=== PATIENT | female | born 1940 | race Caucasian/White ===

== ENCOUNTER 2025-04-15 18:06 | Inpatient (IN) | payer OTHER, SELFPAY ==
[2025-04-15 12:41] VITALS: BP 149/87
--- NOTE | 2025-04-15 16:04 | ED.GENMED ---
History of Present Illness
General
Chief Complaint: Musculo-Skeletal Complaint
Source: patient
Exam Limitations: none
Time Seen by Provider: 04/15/25 15:10
Nursing documentation reviewed up to this point in time: agreed with
History of Present Illness
History of Present Illness:
85-year-old female past medical history of Parkinson's presenting to the emergency department today after mechanical fall coming out of shower twisting her left ankle denies specifically hitting her head neck pain no additional concerns small Tesfaye
bruising to her left hand but claims to have no symptoms or pain to that area. Unable to walk since. Denies numbness weakness or additional concerns. Not on blood thinners.
Review of Systems
Review of Systems
Allergies reviewed?: Yes
All Other Systems: ROS reviewed and negative except as documented in HPI and ROS
Phy Exam
Physical Exam
Physical Exam:
GENERAL: Alert , in no apparent distress
EYE: pupils equal and reactive
NECK: Supple, no significant adenopathy.
ENT: o/p clr, mmm.
CARDIAC: Regular rate and rhythm .
LUNGS: Clear breath sounds bilaterally, no acute respiratory distress, no wheezes/rales/rhonchi
ABDOMEN: Soft, without focal tenderness, no r/g, no cvat
NEUROLOGICAL: Alert and oriented, no focal neuro deficits
SKIN: Warm and dry, skin intact.
MUSCULOSKELETAL: Left ankle swelling tenderness palpation to lateral and medial malleolus unwilling to move the ankle secondary to pain. No tenderness to the foot forefoot or toes. No pain at the briceño no pain at the knee good range of motion at
the knee, well perfused.
PSYCH: Normal and appropriate interaction.
Course
Orders/Labs/Results
Orders:
Orders
04/15/25 12:46
CR Ankle - Left Min 3 Views Urgent
Comment:
Reason For Exam: pain
Tib/Fib, Left 2 View [CR Leg Tibia/fibula Left 2 Vw] Urgent
Comment:
Reason For Exam: pain
04/15/25 15:54
Lower Ext Left wo Contrast CT [CT Lower Ext W/o Iv Cont Lt] Urgent
Comment:
Reason For Exam: knee eval for tibial plateau fx
04/15/25 16:36
BMP [Basic Metabolic Panel] Urgent
CBC/With Diff [Complete Blood Count/With Diff] Urgent
Abnormal Lab Results
04/15/25
16:36
WBC 13.5 H 10^3/uL
(4.8-10.8)
RBC 3.93 L 10^6/uL
(4.20-5.40)
Hgb 11.9 L g/dL
(12.0-16.0)
Hct 35.5 L %
(37.0-47.0)
Abs Immat Gran (auto) 0.1 H 10^3/uL
(0-0.05)
Absolute Neuts (auto) 11.1 H 10^3/uL
(1.4-6.5)
Absolute Lymphs (auto) 1.1 L 10^3/uL
(1.2-3.4)
Absolute Monos (auto) 1.1 H 10^3/uL
(0.1-0.6)
Neutrophils % 82.2 H %
(42.2-75.2)
Lymphocytes % 8.0 L %
(20.5-51.1)
BUN 20 H mg/dl
(7-17)
Glucose 106 H mg/dl
(70-99)
04/15/25 16:36
04/15/25 16:36
Vital Signs
Initial and Last Documented VS:
Initial Vital Signs
Temp Pulse Resp BP Pulse Ox
98 F 70 16 149/87 100
04/15/25 12:41 04/15/25 12:41 04/15/25 12:41 04/15/25 12:41 04/15/25 12:41
Last Documented Vital Signs
Temp Pulse Resp BP Pulse Ox
98 F 70 16 149/87 100
04/15/25 12:41 04/15/25 12:41 04/15/25 12:41 04/15/25 12:41 04/15/25 12:41
Procedures
Splinting/Sling Placement
Left Ankle:
Procedure completed by: Myself
Pre-splint extermity exam: neurovascular intact
Type of splint: posterior short leg
Splint material: fiberglass
Splint checked by provider?: Yes
Normal distal neurovascular exam?: Yes
MDM/Problems Addressed
MDM/Problems Addressed:
85-year-old female presenting to the emergency department today after mechanical fall injuring her left ankle. Patient found to have a bimalleolar fracture. Patient unable to tolerate crutches plan to admit for potential placement and Ortho
consult. Additionally concern for potential tibial plateau fracture. CT scan ordered for further assessment.
*Critical Care Note
Total Time (30-74mins, 75-104mins- exclusive of procedures): Not Applicable
ED Attending Note
-
Portions of this chart may have been created with voice recognition software.� Occasional wrong word or��sound alike� substitutions may have occurred due to the inherent limitations of voice recognition software.
Discharge Plan
Departure
Patient Disposition: Admit
Date of Disposition: 04/15/25
Time of Disposition: 17:29
Admit to: Med/Surg
Admit to doctor: Jerson
Presentation/result/management discussed w/ accepting MD/DO: Hospitalist
Patient with high blood pressure during this ER visit?: No
Condition: Good
Covid-19: Not Applicable
Discharge Problem:
Bimalleolar ankle fracture
Referrals:
Daisha Cabrera MD [Family Provider] -
Interventions
Interventions:
*Risk Screen - Suicide Last Done: 04/15/25 12:41
*General Assessment Last Done: 04/15/25 15:08
*Neglect/Abuse Screening Last Done: 04/15/25 12:41
*ED- Fall Risk Assessment Last Done: 04/15/25 15:08
*ED COVID-19 Vaccine History Last Done: 04/15/25 15:08
ED-Musculoskeletal Assessment Last Done: 04/15/25 15:08
Discharge Date and Time
Print Language: TAIWANESE
[2025-04-15 16:37] VITALS: BMI 19.4
[2025-04-15 16:41] LABS: % Basophils 0.1 % (0-2); % Eosinophils 0.9 % (0-6); % Immature Granulocytes 0.4 % (0-0.5); % Monocytes 8.4 % (1.7-9.3); % Neutrophils 82.2 % (42.2-75.2); Absolute Eosinophils 0.1 10^3/uL (0-0.7); Absolute Immature Granulocytes 0.1 10^3/uL (0-0.05); Absolute Lymphocytes 1.1 10^3/uL (1.2-3.4); Absolute Monocytes 1.1 10^3/uL (0.1-0.6); Absolute Neutrophils 11.1 10^3/uL (1.4-6.5); Hematocrit 35.5 % (37.0-47.0); Hemoglobin 11.9 g/dL (12.0-16.0); Mean Corp Hgb Conc. 33.5 g/dL (33.0-37.0); Mean Corpuscular Hgb 30.3 pg (27.0-31.0); Mean Corpuscular Volume 90.3 fL (81.0-99.0); Mean Platelet Volume 8.2 fL (7.4-10.4); Nucleated Red Blood Cells % 0 %; Platelet Count 293 10^3/uL (130-400); Red Blood Cell Count 3.93 10^6/uL (4.20-5.40); Red Cell Dist. Width 13.4 % (11.5-14.5); White Blood Cell Count 13.5 10^3/uL (4.8-10.8)
[2025-04-15 17:00] LABS: Blood Urea Nitrogen 20 mg/dl (7-17); Calcium 9.6 mg/dl (8.4-10.2); Carbon Dioxide 26 mmol/L (22-30); Chloride 107 mmol/L (98-107); Estimated Creatinine Clearance 43 ml/min; Glucose 106 mg/dl (70-99); Potassium 4.9 mmol/L (3.5-5.1); Sodium 138 mmol/L (135-145); eGFR > 60.00
--- NOTE | 2025-04-15 17:46 | HPS.HSE ---
Family Physician
-
Family Physician: Daisha Cabrera
Chief Complaint
-
LLE pain
History of Present Illness
85yo f with PMHx of HTN, Parkinsons brought from home after sustaining the fall while walking out of the shower. No LOC, no preceding symptoms. Patient with poor balance at baseline 2/2 Parkinsons, found Acute fractures of the medial malleolus and
the lateral malleolus, both with mild displacement and lateral tibial plateau fracture. Patient unable to ambulate after the fall
Medical History
Past Medical History
Past Medical History: Reports Other
Additional Past Medical History:
see HPI
Past Surgical History: Reports Other
Additional Past Surgical History:
See HPI
Social History
Tobacco: Former Smoker
Alcohol: None
Drug: None
Family History
Family History: Not pertinent
Allergies / Home Medications
Allergies reflects when Allergies were last updated in [facility].
Home Medications with original date entered in [facility]
Allergy/Medication List:
Allergies
Allergy/AdvReac Type Severity Reaction Status Date / Time
COVID-19 (SARS-CoV-2) Allergy Unknown Verified 04/15/25 12:45
vaccine, alex
Full list not reconciled at the time of admission
Sinemet 1.5tabs TID
Review of Systems
-
History Source: Patient
A 12 point ROS was completed and negative except as noted: Yes
Musculoskeletal: Reports Other (LLE pain)
Physical Exam
Vital Signs
Vital Signs
Temp Pulse Resp BP Pulse Ox
98 F 70 16 149/87 100
04/15/25 12:41 04/15/25 12:41 04/15/25 12:41 04/15/25 12:41 04/15/25 12:41
Physical Exam
General: No Apparent Distress, Comfortable and Conversant
HEENT: NormoCephalic, Anicteric and Moist mucous membranes
Respiratory: Clear; No Wheezes or Crackles
Cardiac: S1/S2 and Regular Rhythm; No Murmur
GI: Soft, Non Tender and Non Distended
Musculoskeletal: No Clubbing, No Cyanosis and Other (LLE in cast)
Skin: Warm
Neuro: Awake, Alert, Oriented and AO x 3
Psych: Calm
Laboratory Results
-
04/15/25 16:36
04/15/25 16:36
Data Reviewed
-
Diagnostic Radiology: Report Reviewed by me
Lab Data: Labs Reviewed by me
Impression/Plan
-
A/P:
#Acute fractures of the L medial malleolus and the lateral malleolus, both with mild displacement
#L lateral tibial plateau fracture
Possibly exacerbated by osteoporosis - needs outpatient assessment by PCP
Patient without prior cardiac stent, no pneumonia in past 3 months, does not use inhalers, low-moderate risk for intermediate risk procedure.
Ortho consult
Pain mgmt
PT/OT
NPO starting MN
#L hand bruise
Hand XR
#Mild leukocytosis
most liekyl stress-related as patient complains of no symptoms
Monitor without additional w/u
#Anxiety
#Neuropathy
#Essential HTN
#parkinsons
COnt home meds
DVt ppx on lovenox
DNR/DNI - discussed in details with patient and family
I have spent at least 75min reviewing chart, test results, communication with consultants, family and providing direct patient care
--- NOTE | 2025-04-15 19:15 | PTCARENOTE ---
Patient arrived to [address] [place] [address], transferred from stretch to bed. Splint and jovanny wrap intact to L lower leg. Patient's son and DIL at bedside. Pt AAOx3, pleasant, no pain at this time. VSS, assessment on going.
[2025-04-15 19:19] VITALS: BMI 19.2
[2025-04-15 19:25] VITALS: BP 153/86
[2025-04-15] MEDS: D5LR 1000 IV (21:19)
[2025-04-15] MEDS: SINEMET 25-100 1.5 TABLET PO (21:19)
[2025-04-15] MEDS: LOVENOX 40 MG SC (21:19)
[2025-04-15 23:40] VITALS: BP 140/76
[2025-04-16] MEDS: ULTRAM 25 MG PO (00:15)
[2025-04-16] MEDS: TYLENOL 650 MG PO ×2 (02:10→18:25)
[2025-04-16 07:20] VITALS: BP 157/83
--- NOTE | 2025-04-16 07:48 | W.PN.UPDATE ---
Update Note
Progress Note Update
Full orthopedic consult dictated:
Dx: Left lateral tibial plateau fracture with minimal depression, left bimalleolar fracture and left hand contusion
Plan: Patient unfortunately had a fall sustaining multiple injuries. For her left hand contusion treat conservatively with ice, Tylenol and range of motion exercises. The left lateral tibial plateau fracture has minimal depression so treat
nonsurgically with nonweightbearing until fracture heals. Serial x-rays to follow fracture position and healing. Left ankle fracture is going to require open reduction internal fixation. Dr. Currie will do open reduction internal fixation left
ankle this week. Nonweightbearing along with ice and elevation to control swelling and pain.
[2025-04-16 07:50] LABS: INR 1.06; PT 14.1 Sec (11.4-14.6)
[2025-04-16 07:51] LABS: APTT 40.2 Sec (23.4-35.0)
[2025-04-16 08:02] LABS: % Basophils 0.4 % (0-2); % Eosinophils 0.5 % (0-6); % Immature Granulocytes 0.3 % (0-0.5); % Lymphocytes 13.3 % (20.5-51.1); % Neutrophils 73.5 % (42.2-75.2); Absolute Eosinophils 0.1 10^3/uL (0-0.7); Absolute Lymphocytes 1.3 10^3/uL (1.2-3.4); Absolute Monocytes 1.2 10^3/uL (0.1-0.6); Absolute Neutrophils 7.1 10^3/uL (1.4-6.5); Hematocrit 31.1 % (37.0-47.0); Hemoglobin 10.7 g/dL (12.0-16.0); Mean Corp Hgb Conc. 34.4 g/dL (33.0-37.0); Mean Corpuscular Hgb 29.8 pg (27.0-31.0); Mean Corpuscular Volume 86.6 fL (81.0-99.0); Mean Platelet Volume 8.6 fL (7.4-10.4); Nucleated Red Blood Cells % 0 %; Platelet Count 277 10^3/uL (130-400); Red Blood Cell Count 3.59 10^6/uL (4.20-5.40); Red Cell Dist. Width 13.3 % (11.5-14.5); White Blood Cell Count 9.7 10^3/uL (4.8-10.8)
[2025-04-16] MEDS: BUSPAR 10 MG PO ×3 (08:55→21:31)
[2025-04-16] MEDS: INDERAL 20 MG PO (08:55)
[2025-04-16] MEDS: SINEMET 25-100 1.5 TABLET PO ×3 (08:56→21:31)
--- NOTE | 2025-04-16 09:08 | W.PN.HOSP.TC ---
Today's Communication/Plan
-
PT/OT post OP
pending plan for L ankle ORIF
labs ordered for AM
Assessment / Plan
Assessment / Plan
85yo f with PMHx of HTN, Parkinsons brought from home after sustaining the fall while walking out of the shower. No LOC, no preceding symptoms. Patient with poor balance at baseline 2/2 Parkinsons, found Acute fractures of the medial malleolus and
the lateral malleolus, both with mild displacement and lateral tibial plateau fracture. Patient unable to ambulate after the fall, pending ortho for L ankle ORIF
A/P:
#Acute fractures of the L medial malleolus and the lateral malleolus, both with mild displacement
#L lateral tibial plateau fracture
L tibial plateau - conservative mgmt
Ankle Fx - ORIF planned by ortho
Possibly exacerbated by osteoporosis - needs outpatient assessment by PCP
Patient without prior cardiac stent, no pneumonia in past 3 months, does not use inhalers, low-moderate risk for intermediate risk procedure.
Ortho consult
Pain mgmt
PT/OT after surgery
#L hand bruise
Hand XR without Fx
#Mild leukocytosis
most liekyl stress-related as patient complains of no symptoms
resolved
#mild anemia
follow postOP CBC
outpatient follow up with PCP
#Anxiety
#Neuropathy
#Essential HTN
#parkinsons
COnt home meds
DVt ppx on lovenox
DNR/DNI - discussed in details with patient and family
I have spent at least 55min reviewing chart, test results, communication with consultants, family and providing direct patient care
Anticipated Discharge: > 48 hours
Subjective/Interval History
-
Date of Service: April 16, 2025
Objective Data
-
Labs:
Laboratory Results
04/16/25 04/16/25
06:37 07:29
WBC 9.7
Hgb 10.7 L
Hct 31.1 L
Plt Count 277
PT 14.1
INR 1.06
APTT 40.2 H
Vital Signs:
Vital Signs
Temp Pulse Resp BP Pulse Ox
98.0 F 93 16 157/83 97
04/16/25 07:20 04/16/25 08:55 04/16/25 07:20 04/16/25 08:55 04/16/25 07:20
Review of Systems
-
History Source: Patient
All other systems: Reviewed and negative
Musculoskeletal: Reports Other (LLE pain)
Physical Exam
-
General: No Apparent Distress
HEENT: Normocephalic
Cardiac: Regular Rhythm
GI: Soft, Nontender and Nondistended
Musculoskeletal: Other (LLE in cast, sensation preserved in toes,no discoloration)
Skin: Other (L hand bruise, improving)
Neuro: Awake, Alert, Oriented and AO x 3
[2025-04-16] MEDS: NEURONTIN 600 MG PO (11:36)
[2025-04-16] MEDS: D5LR IV (12:06)
[2025-04-16 15:59] VITALS: BP 148/78
[2025-04-16] MEDS: LOVENOX 40 MG SC (16:32)
[2025-04-16] MEDS: INDERAL 10 MG PO (18:25)
[2025-04-16] MEDS: REMERON 15 MG PO (21:31)
[2025-04-16 23:12] VITALS: BP 110/57
[2025-04-17] MEDS: TYLENOL 650 MG PO (01:55)
[2025-04-17 07:35] VITALS: BP 139/72
--- NOTE | 2025-04-17 07:37 | W.PN.UPDATE ---
Update Note
Progress Note Update
Will discuss with patient potential operative plans for unstable ankle fracture
Consider ORIF pending discussion
--- NOTE | 2025-04-17 08:04 | W.PN.UPDATE ---
Update Note
Progress Note Update
85-year-old female left tibial plateau fracture and left bimalleolar ankle fracture
- Podiatric surgery consultation for left ankle. Continue nonweightbearing in splint. Possible ORIF later this week but not today
- Nonweightbearing to left lower extremity regarding left tibial plateau fracture. Can use knee immobilizer for time being and repeat x-rays in 1 to 2 weeks and consideration of beginning knee range of motion as pain is tolerated continue
nonweightbearing for duration of at least 6 weeks
[2025-04-17 08:09] LABS: Hematocrit 29.3 % (37.0-47.0); Hemoglobin 9.8 g/dL (12.0-16.0); Mean Corp Hgb Conc. 33.4 g/dL (33.0-37.0); Mean Corpuscular Hgb 30.1 pg (27.0-31.0); Mean Corpuscular Volume 89.9 fL (81.0-99.0); Mean Platelet Volume 8.4 fL (7.4-10.4); Platelet Count 251 10^3/uL (130-400); Red Blood Cell Count 3.26 10^6/uL (4.20-5.40); Red Cell Dist. Width 13.2 % (11.5-14.5); White Blood Cell Count 9.1 10^3/uL (4.8-10.8)
[2025-04-17 08:19] LABS: INR 1.04; PT 14.2 Sec (11.4-14.6)
[2025-04-17 09:03] LABS: Blood Urea Nitrogen 19 mg/dl (7-17); Calcium 9.3 mg/dl (8.4-10.2); Carbon Dioxide 27 mmol/L (22-30); Chloride 102 mmol/L (98-107); Estimated Creatinine Clearance 43 ml/min; Glucose 105 mg/dl (70-99); Potassium 4.1 mmol/L (3.5-5.1); Sodium 135 mmol/L (135-145); eGFR > 60.00
[2025-04-17] MEDS: SINEMET 25-100 1.5 TABLET PO ×3 (09:13→21:31)
[2025-04-17] MEDS: BUSPAR 10 MG PO ×3 (09:13→21:31)
[2025-04-17] MEDS: INDERAL 20 MG PO (09:13)
--- NOTE | 2025-04-17 13:10 | W.PN.HOSP.TC ---
Today's Communication/Plan
-
Continue as needed analgesics
PT assessment
Planning ORIF this week
Conservative management for tibial fracture
Assessment / Plan
Assessment / Plan
#Acute mildly displaced fractures of the L medial lateral malleolus
#L lateral tibial plateau fracture
-L tibial plateau - conservative mgmt
-Ankle Fx - ORIF planned by ortho
-Possibly exacerbated by osteoporosis - needs outpatient assessment by PCP
-low-moderate risk for intermediate risk procedure.
-Ortho consult
-Pain mgmt
-PT/OT after surgery
#L hand bruise
-Hand XR without Fx
#Mild leukocytosis
-most likely stress-related as patient complains of no symptoms
-resolved
# Normocytic anemia
-Hemoglobin near 11.6 on arrival, down to 9.8 as of 04/17
-Possibly some bleeding local to her fractures though no other obvious sources
-Will check iron studies, B12, folate, RI
-Trend CBC
#Anxiety
#Neuropathy
#Essential HTN
#parkinsons
-Continue with home regimen home meds
SQ Lovenox
Cholesterol-lowering
DNR/DNI
Anticipated Discharge: > 48 hours
Subjective/Interval History
-
Date of Service: April 17, 2025
Seen and examined at the bedside. No acute events reported overnight. AFVSS this morning
Discussed with orthopedics who is considering ORIF later this week. PT evaluated patient this morning.
Labs are stable. Patient states her pain is fairly well-controlled at the time of my eval
Objective Data
-
Labs:
Laboratory Results
04/17/25
07:59
WBC 9.1
Hgb 9.8 L
Hct 29.3 L
Plt Count 251
PT 14.2
INR 1.04
Sodium 135
Potassium 4.1
Chloride 102
Carbon Dioxide 27
BUN 19 H
Creatinine 0.7
Glucose 105 H
Calcium 9.3
Vital Signs:
Vital Signs
Temp Pulse Resp BP Pulse Ox
98.2 F 77 16 139/72 96
04/17/25 07:35 04/17/25 09:13 04/17/25 07:35 04/17/25 09:13 04/17/25 07:35
I&O
04/16/25 04/17/25 04/18/25
06:59 06:59 06:59
Intake Total 600 / 600 120 / 120
Balance 600 / 600 120 / 120
Review of Systems
-
History Source: Patient
All other systems: Reviewed and negative
Physical Exam
-
General: Well Developed, No Apparent Distress and Other (Thin and frail)
HEENT: Normocephalic, Atraumatic, Moist Mucous Membranes and Anicteric
Respiratory: Clear to Auscultation and Non Labored Respirations; Negative Accessory Resp Muscle Use
Cardiac: Regular Rhythm and S1/S2; Negative Murmur, Rub or Gallop
GI: Soft, Nontender, Nondistended and Normal Bowel Sounds
Musculoskeletal: No Clubbing, No Cyanosis and No Edema
Skin: Warm and Dry; Negative Rash
Neuro: AO x 3 and Nonfocal/Grossly Intact; Negative Tremors
Psych: Calm
Data Reviewed
-
Labs: Labs Reviewed by me and Discussed with Patient
[2025-04-17] MEDS: NEURONTIN 600 MG PO (14:09)
[2025-04-17 15:26] VITALS: BP 122/62
--- NOTE | 2025-04-17 16:16 | W.PN.SURGUPD ---
Surgical Update
Surgical Update
85 yo F presents with L unstable bimalleolar fracture
-Patient seen and evaluated at bedside
-Plan for left ankle ORIF 04/18
-Please keep patient NPO after midnight
-May need SNF upon discharge
[2025-04-17] MEDS: LOVENOX SC (17:33)
[2025-04-17] MEDS: INDERAL 10 MG PO (21:31)
[2025-04-17] MEDS: REMERON 15 MG PO (21:31)
[2025-04-17 23:00] VITALS: BP 103/51
[2025-04-18] VITALS (9 sets, daily range): BP systolic 123–160; BP diastolic 58–85
[2025-04-18 06:52] LABS: % Basophils 0.1 % (0-2); % Eosinophils 2.9 % (0-6); % Immature Granulocytes 0.4 % (0-0.5); % Lymphocytes 20.4 % (20.5-51.1); % Monocytes 13.4 % (1.7-9.3); % Neutrophils 62.8 % (42.2-75.2); Absolute Eosinophils 0.2 10^3/uL (0-0.7); Absolute Lymphocytes 1.7 10^3/uL (1.2-3.4); Absolute Monocytes 1.1 10^3/uL (0.1-0.6); Absolute Neutrophils 5.3 10^3/uL (1.4-6.5); Hematocrit 29.2 % (37.0-47.0); Hemoglobin 9.7 g/dL (12.0-16.0); Mean Corp Hgb Conc. 33.2 g/dL (33.0-37.0); Mean Corpuscular Hgb 29.8 pg (27.0-31.0); Mean Corpuscular Volume 89.8 fL (81.0-99.0); Mean Platelet Volume 8.3 fL (7.4-10.4); Nucleated Red Blood Cells % 0 %; Platelet Count 252 10^3/uL (130-400); Red Blood Cell Count 3.25 10^6/uL (4.20-5.40); Red Cell Dist. Width 13.2 % (11.5-14.5); Reticulocyte Count 1.4 % (0.4-2.8); White Blood Cell Count 8.4 10^3/uL (4.8-10.8)
[2025-04-18 07:20] LABS: Blood Urea Nitrogen 18 mg/dl (7-17); Calcium 9.2 mg/dl (8.4-10.2); Carbon Dioxide 28 mmol/L (22-30); Chloride 104 mmol/L (98-107); Estimated Creatinine Clearance 43 ml/min; Glucose 95 mg/dl (70-99); Iron 53 ug/dl (37-170); Potassium 3.8 mmol/L (3.5-5.1); Sodium 138 mmol/L (135-145); eGFR > 60.00
[2025-04-18 07:31] LABS: Percent Saturation 22 % (20-50); Total Iron Binding Capacity 235 ug/dl (265-497)
[2025-04-18 08:27] LABS: Folate 5.1 ng/ml (2.76-20); Vitamin B12 271 pg/ml (239-931)
[2025-04-18] MEDS: SINEMET 25-100 1.5 TABLET PO ×2 (10:02→23:34)
[2025-04-18] MEDS: INDERAL 20 MG PO (10:03)
[2025-04-18] MEDS: BUSPAR 10 MG PO ×2 (10:03→23:34)
[2025-04-18] MEDS: ULTRAM 25 MG PO (10:10)
--- NOTE | 2025-04-18 10:24 | CM ---
Patient seen at bedside
OR scheduled today
Dx: L tibial & malleolar fx
PMH of HTN, Parkinsons
IA completed
Lives alone in an apartment [facility] in [place], no steps
PLOF: independent with cane
DME: cane, rollator
Denies VN in past, states [facility] in past
Denies insecurities
PCP: Dr. Jennifer Cabrera
Pharmacy: [facility]
PLAN: anticipate SNF, await PT/OT post-op
[2025-04-18] MEDS: NEURONTIN 600 MG PO (13:27)
--- NOTE | 2025-04-18 15:03 | W.PN.HOSP.TC ---
Today's Communication/Plan
-
ORIF today
Assessment / Plan
Assessment / Plan
#Acute mildly displaced fractures of the L medial lateral malleolus
#L lateral tibial plateau fracture
-L tibial plateau - conservative mgmt
-Ankle Fx - ORIF planned by ortho
-Possibly exacerbated by osteoporosis - needs outpatient assessment by PCP
-low-moderate risk for intermediate risk procedure.
-Ortho consult
-Pain mgmt
-PT/OT after surgery
#L hand bruise
-Hand XR without Fx
#Mild leukocytosis
-most likely stress-related as patient complains of no symptoms
-resolved
# Normocytic anemia
-Hemoglobin near 11.6 on arrival, down to 9.8 as of 04/17
-Possibly some bleeding local to her fractures though no other obvious sources
-Will check iron studies, B12, folate, RI
-Trend CBC
#Anxiety
#Neuropathy
#Essential HTN
#parkinsons
-Continue with home regimen home meds
SQ Lovenox
Cholesterol-lowering
DNR/DNI
Anticipated Discharge: 24 - 48 hours
Subjective/Interval History
-
Date of Service: April 18, 2025
no acute events
Objective Data
-
Labs:
Laboratory Results
04/18/25
06:36
WBC 8.4
Hgb 9.7 L
Hct 29.2 L
Plt Count 252
Sodium 138
Potassium 3.8
Chloride 104
Carbon Dioxide 28
BUN 18 H
Creatinine 0.7
Glucose 95
Calcium 9.2
Vital Signs:
Vital Signs
Temp Pulse Resp BP Pulse Ox
98.4 F 73 17 126/64 96
04/18/25 07:14 04/18/25 07:14 04/18/25 07:14 04/18/25 07:14 04/18/25 07:14
I&O
04/17/25 04/18/25 04/19/25
06:59 06:59 06:59
Intake Total 600 / 600 840 / 840
Balance 600 / 600 840 / 840
Review of Systems
-
History Source: Patient
All other systems: Not reviewed unless documented
Physical Exam
-
General: Well Developed, No Apparent Distress and Other (Thin and frail)
HEENT: Normocephalic, Atraumatic, Moist Mucous Membranes and Anicteric
Respiratory: Clear to Auscultation and Non Labored Respirations; Negative Accessory Resp Muscle Use
Cardiac: Regular Rhythm and S1/S2; Negative Murmur, Rub or Gallop
GI: Soft, Nontender, Nondistended and Normal Bowel Sounds
Musculoskeletal: No Clubbing, No Cyanosis and No Edema
Skin: Warm and Dry; Negative Rash
Neuro: AO x 3 and Nonfocal/Grossly Intact; Negative Tremors
Psych: Calm
Data Reviewed
-
Labs: Labs Reviewed by me and Discussed with Patient
[2025-04-18] MEDS: SINEMET 25-100 PO (18:30)
[2025-04-18] MEDS: BUSPAR PO (18:30)
[2025-04-18] MEDS: LOVENOX SC (18:31)
--- NOTE | 2025-04-18 20:36 | W.PN.SURGUPD ---
Surgical Update
Surgical Update
85 yo F s/p left ankle ORIF
-Dressings to remain C/D/I
-Strict NWB to LLE
-Will need PT/OT
-Anticipate need for DC to SNF
--- NOTE | 2025-04-18 22:23 | PTCARENOTE ---
Pt arrived 0 from PACU. Pt confused, drowsy and only oriented to self. VSS. oriented to room and call mcmahan. bed locked and in the lowest position
[2025-04-18] MEDS: INDERAL 10 MG PO (23:34)
[2025-04-18] MEDS: REMERON 15 MG PO (23:35)
[2025-04-19] VITALS (8 sets, daily range): BP systolic 122–160; BP diastolic 58–96; PULSE 91–92; O2SAT 98
[2025-04-19] MEDS: ANCEF 5 IV (02:40)
[2025-04-19 07:36] LABS: Hematocrit 30.8 % (37.0-47.0); Hemoglobin 10.2 g/dL (12.0-16.0); Mean Corp Hgb Conc. 33.1 g/dL (33.0-37.0); Mean Corpuscular Hgb 29.9 pg (27.0-31.0); Mean Corpuscular Volume 90.3 fL (81.0-99.0); Mean Platelet Volume 8.9 fL (7.4-10.4); Platelet Count 327 10^3/uL (130-400); Red Blood Cell Count 3.41 10^6/uL (4.20-5.40); Red Cell Dist. Width 13.1 % (11.5-14.5); White Blood Cell Count 11.9 10^3/uL (4.8-10.8)
[2025-04-19 07:48] LABS: ALT (SGPT) < 10 U/L (0-35); AST (SGOT) 34 U/L (14-36); Albumin 3.9 g/dl (3.5-5.0); Alkaline Phosphatase 109 U/L (38-126); Blood Urea Nitrogen 23 mg/dl (7-17); Calcium 9.1 mg/dl (8.4-10.2); Carbon Dioxide 25 mmol/L (22-30); Chloride 104 mmol/L (98-107); Estimated Creatinine Clearance 50 ml/min; Glucose 123 mg/dl (70-99); Sodium 140 mmol/L (135-145); Total Bilirubin 0.9 mg/dl (0.2-1.3); Total Protein 6.8 g/dl (6.3-8.2); eGFR > 60.00
[2025-04-19] MEDS: SINEMET 25-100 1.5 TABLET PO ×3 (08:15→21:26)
[2025-04-19] MEDS: BUSPAR 10 MG PO ×3 (08:15→21:26)
[2025-04-19] MEDS: INDERAL 20 MG PO (08:16)
[2025-04-19] MEDS: TYLENOL 650 MG PO ×2 (08:20→20:47)
--- NOTE | 2025-04-19 10:11 | CM ---
Addendum entered by Medardo Abdullahi 04/19/25 15:20:
CM received a confirmation from [facility]. They accept the pt with admission tomorrow 04/20/25.
Both pt and her son Shivam are aware, expressed their agreement with discharge tomorrow. IMM reviewed, placed on chart, pt has a copy.
CM initiated an auth for SNF level of care at [facility] , spoke to supportive employment case manager Juanita and based on pt's clinical, pt is approved for 6 initial days for SNF level of care at [facility] starting tomorrow 04/20/25 till 04/25/25 with LCD and NRD
04/25/25. Verbal review to: [phone]. Auth: [id number]
SNF auth information forwarded to [facility] daycare director.
CM obtained ambulance auth for Acute care ambulance for tomorrow: Auth: [id number].
to arrange ambulance transport BLS for tomorrow 04/20/25. [facility] completed, left with .
[facility] nursing report: [phone]
Discharge instructions fax: [phone].
D/C plan: [facility] tomorrow 04/20/25.
Original Note:
CM following re: discharge planning.
Reviewed pt's chart, met with pt and spoke to pt's son Shivam over the phone to update on discharge plan progress.
Pt is POD#1 s/p left ankle ORIF.
PT and OT evaluations noted - SNF level of care recommended.
Both pt and her son are aware, expressed their agreement. Pt stated she lives in an independent cottage at [facility] in [place] on [address] and they do not have a short term rehab unit. Pt stated her son is looking to get a short term rehab at
[facility]. Pt's son stated that [facility] is very close where he lives and his mother in law is a resident there. Alternative SNFs: [facility] or [facility]. Per son, number one choice is [facility].
A referral to above SNFs made.
D/c plan: Preferred SNF. [facility] is number one choice.
CM will follow to assist pt with discharge to a preferred SNF.
[2025-04-19] MEDS: NEURONTIN 600 MG PO (12:20)
--- NOTE | 2025-04-19 12:58 | W.PN.HOSP.TC ---
Today's Communication/Plan
-
pain control
PT/OT
DC ready, CM aware
Assessment / Plan
Assessment / Plan
#Acute mildly displaced fractures of the L medial lateral malleolus
#L lateral tibial plateau fracture
-left ankle ORIF 04/18
-L tibial plateau - conservative mgmt
-Possibly exacerbated by osteoporosis - needs outpatient assessment by PCP
-Pain mgmt
-PT/OT
#Leukocytosis
-more than likely reactive s/p procedure
f/u fever curve, wbc
#L hand bruise
-Hand XR without Fx
# Normocytic anemia
-Hemoglobin near 11.6 on arrival, down to 9.8 as of 04/17
-Possibly some bleeding local to her fractures though no other obvious sources
-Will check iron studies, B12, folate, RI
-Trend CBC
#Anxiety
#Neuropathy
#Essential HTN
#parkinsons
-Continue with home regimen home meds
SQ Lovenox
Cholesterol-lowering
DNR/DNI
Anticipated Discharge: Within 24 hours
Subjective/Interval History
-
Date of Service: April 19, 2025
ORIF yesterday
Objective Data
-
Labs:
Laboratory Results
04/19/25
06:09
WBC 11.9 H
Hgb 10.2 L
Hct 30.8 L
Plt Count 327 D
Sodium 140
Potassium 5.0 D
Chloride 104
Carbon Dioxide 25
BUN 23 H
Creatinine 0.6
Glucose 123 H
Calcium 9.1
Total Bilirubin 0.9
AST 34
ALT < 10
Alkaline Phosphatase 109
Vital Signs:
Vital Signs
Temp Pulse Resp BP Pulse Ox
98.5 F 89 18 151/80 97
04/19/25 11:29 04/19/25 11:29 04/19/25 11:29 04/19/25 11:29 04/19/25 11:29
I&O
04/18/25 04/19/25 04/20/25
06:59 06:59 06:59
Intake Total 840 / 840 390 / 390 240 / 240
Balance 840 / 840 390 / 390 240 / 240
Review of Systems
-
History Source: Patient
All other systems: Not reviewed unless documented
Physical Exam
-
General: Well Developed, No Apparent Distress and Other (Thin and frail)
HEENT: Normocephalic, Atraumatic, Moist Mucous Membranes and Anicteric
Respiratory: Clear to Auscultation and Non Labored Respirations; Negative Accessory Resp Muscle Use
Cardiac: Regular Rhythm and S1/S2; Negative Murmur, Rub or Gallop
GI: Soft, Nontender, Nondistended and Normal Bowel Sounds
Musculoskeletal: No Clubbing, No Cyanosis and No Edema
Skin: Warm and Dry; Negative Rash
Neuro: AO x 3 and Nonfocal/Grossly Intact; Negative Tremors
Psych: Calm
Data Reviewed
-
Labs: Labs Reviewed by me and Discussed with Patient
[2025-04-19] MEDS: LOVENOX 40 MG SC (17:22)
[2025-04-19] MEDS: INDERAL 10 MG PO (18:03)
[2025-04-19] MEDS: REMERON 15 MG PO (21:26)
[2025-04-20] MEDS: TYLENOL 650 MG PO (01:04)
[2025-04-20 06:11] LABS: Hematocrit 25.7 % (37.0-47.0); Hemoglobin 8.7 g/dL (12.0-16.0); Mean Corp Hgb Conc. 33.9 g/dL (33.0-37.0); Mean Corpuscular Hgb 30.3 pg (27.0-31.0); Mean Corpuscular Volume 89.5 fL (81.0-99.0); Mean Platelet Volume 8.6 fL (7.4-10.4); Platelet Count 305 10^3/uL (130-400); Red Blood Cell Count 2.87 10^6/uL (4.20-5.40); Red Cell Dist. Width 13.3 % (11.5-14.5); White Blood Cell Count 9.9 10^3/uL (4.8-10.8)
[2025-04-20 06:31] LABS: ALT (SGPT) < 10 U/L (0-35); AST (SGOT) 30 U/L (14-36); Albumin 3.4 g/dl (3.5-5.0); Alkaline Phosphatase 93 U/L (38-126); Blood Urea Nitrogen 35 mg/dl (7-17); Carbon Dioxide 29 mmol/L (22-30); Chloride 105 mmol/L (98-107); Estimated Creatinine Clearance 37 ml/min; Glucose 104 mg/dl (70-99); Sodium 138 mmol/L (135-145); Total Bilirubin 0.7 mg/dl (0.2-1.3); Total Protein 6.1 g/dl (6.3-8.2); eGFR > 60.00
[2025-04-20 07:45] VITALS: BP 124/59
--- NOTE | 2025-04-20 09:04 | CM ---
CM following re: discharge planning.
Reviewed pt's chart, met with pt and spoke to pt's son Shivam over the phone to update on discharge plan progress.
Pt is POD#2 s/p left ankle ORIF.
According to MD pt is medically stable to be discharged today.
Both pt and her son are aware, expressed their agreement with discharge. IMM reviewed yesterday.
CM spoke to [facility] ems director and she confirmed that pt is accepted for admission today.
Pt is approved for 6 initial days for SNF level of care at [facility] starting today 04/20/25 till 04/25/25 with LCD and NRD 04/25/25. Verbal review to: [phone]. Auth: [id number]
SNF auth information forwarded to [facility] ems director.
CM obtained ambulance auth for Acute care ambulance for tomorrow: Auth: [id number].
arranged ambulance transport BLS for 11:00 a.m. pickling machine operator time. [facility] completed, left with .
[facility] nursing report: [phone]
Discharge instructions fax: [phone].
D/C plan: [facility] today.
[2025-04-20] MEDS: SINEMET 25-100 1.5 TABLET PO (09:36)
[2025-04-20] MEDS: BUSPAR 10 MG PO (09:37)
[2025-04-20] MEDS: INDERAL 20 MG PO (09:37)
[2025-04-20] MEDS: ULTRAM 25 MG PO (09:40)
[2025-04-20 09:41] LABS: Hemoglobin 9.6 g/dL (12.0-16.0)
--- NOTE | 2025-04-20 09:58 | W.PN.HOSP.TC ---
Addendum entered and electronically signed by Jigar Felix MD 04/20/25 15:27:
[id number]
Original Note:
Today's Communication/Plan
-
[facility] LLE
f/u podiatry in 2 weeks; f/u pcp within 1 week
-f/u cbc in 3 days
-ASA 325mg x 30 days or as per podiatry
Assessment / Plan
Assessment / Plan
#Acute mildly displaced fractures of the L medial lateral malleolus
#L lateral tibial plateau fracture
-left ankle ORIF 04/18
-L tibial plateau - conservative mgmt
-Possibly exacerbated by osteoporosis - needs outpatient assessment by PCP
-Pain mgmt
-PT/OT
[facility] LLE
f/u podiatry in 2 weeks
-f/u cbc in 3 days
-ASA 325mg x 30 days or as per podiatry
#Leukocytosis
-more than likely reactive s/p procedure
f/u fever curve, wbc
-resolved
#L hand bruise
-Hand XR without Fx
# Normocytic anemia
-Hemoglobin near 11.6 on arrival, down to 9.8 as of 04/17
-Trend CBC
-f/u outpt
#Anxiety
#Neuropathy
#Essential HTN
#parkinsons
-Continue with home regimen home meds
SQ ASA 325
Cholesterol-lowering
DNR/DNI
More than 30 minutes spent in discharge including
Final examination of the patient
Summarizing hospital stay
Instructions for continuing care to all relevant caregivers
Preparation of discharge records, prescriptions, and referral forms
Total time spent (in minutes): 37
Anticipated Discharge: Today
Subjective/Interval History
-
Date of Service: April 20, 2025
no acute events overnight
Objective Data
-
Labs:
Laboratory Results
04/20/25 04/20/25
05:22 09:18
WBC 9.9
Hgb 8.7 L 9.6 L
Hct 25.7 L
Plt Count 305
Sodium 138
Potassium 4.0
Chloride 105
Carbon Dioxide 29
BUN 35 H
Creatinine 0.8
Glucose 104 H
Calcium 9.0
Total Bilirubin 0.7
AST 30
ALT < 10
Alkaline Phosphatase 93
Vital Signs:
Vital Signs
Temp Pulse Resp BP Pulse Ox
98.4 F 74 16 124/59 97
04/20/25 07:45 04/20/25 07:45 04/20/25 07:45 04/20/25 07:45 04/20/25 07:45
I&O
04/19/25 04/20/25 04/21/25
06:59 06:59 06:59
Intake Total 390 / 390 780 / 780
Balance 390 / 390 780 / 780
Review of Systems
-
History Source: Patient
All other systems: Not reviewed unless documented
Physical Exam
-
General: Well Developed, No Apparent Distress and Other (Thin and frail)
HEENT: Normocephalic, Atraumatic, Moist Mucous Membranes and Anicteric
Respiratory: Clear to Auscultation and Non Labored Respirations; Negative Accessory Resp Muscle Use
Cardiac: Regular Rhythm and S1/S2; Negative Murmur, Rub or Gallop
GI: Soft, Nontender, Nondistended and Normal Bowel Sounds
Musculoskeletal: No Clubbing, No Cyanosis and No Edema
Skin: Warm and Dry; Negative Rash
Neuro: AO x 3 and Nonfocal/Grossly Intact; Negative Tremors
Psych: Calm
Data Reviewed
-
Diagnostic Radiology: Report Reviewed by me
CT Scan: Report Reviewed by me
Labs: Labs Reviewed by me and Discussed with Patient
--- NOTE | 2025-04-20 10:03 | W.DS.TRANS ---
DC Summary - Finish Inspector
-
Discharge Instructions:
Discharge Diagnosis/Procedures #Acute mildly displaced fractures of the L
medial lateral malleolus
#L lateral tibial plateau fracture
Activity As tolerated
Blood Work cbc in 3 days monitoring HgB; anemia work up as
needed outpatient
Instructions:
Stand-Alone Forms:
Changes to Home Medications: Yes
Discharge Medications:
DC Medications w/original date entered in [facility]
buspirone 10 mg tablet 10 mg PO TID Mental Health/Anxiety 04/15/25
carbidopa 25 mg-levodopa 100 mg tablet 1.5 tab PO TID parkinsons 04/15/25
carboxymethylcellulose sodium 0.25 % eye drops (TheraTears) 1 drp LEFT EYE DAILY@1900 Eye Condition 04/15/25
cholecalciferol (vitamin D3) 50 mcg (2,000 unit) tablet 50 mcg PO NOON Supplement 04/15/25
gabapentin 600 mg tablet 600 mg PO NOON neuropathic pain 04/15/25
mirtazapine 15 mg tablet 15 mg PO HS Mental Health/Anxiety 04/15/25
propranolol 10 mg tablet 10 mg PO DAILY@1900 Blood Pressure 04/15/25
propranolol 10 mg tablet 20 mg PO DAILY@0800 Blood Pressure 04/15/25
vit C 250 mg-vit E 90 mg-zinc 40 mg-copper 1 [id number] capsule (PreserVision AREDS-2) 1 tab PO BID Supplement 04/15/25
acetaminophen 325 mg tablet 650 mg (2 x 325 mg) PO Q4HPRN PRN mild pain/SAUCEDA/temp> 100.4F #0 tabs 04/20/25
aspirin 325 mg capsule 325 mg PO DAILY 30 days #30 caps 04/20/25
Home Medication Changes
acetaminophen 325 mg tablet 650 mg (2 x 325 mg) PO Q4HPRN PRN mild pain/SAUCEDA/temp> 100.4F #0 tabs 04/20/25
aspirin 325 mg capsule 325 mg PO DAILY 30 days #30 caps 04/20/25
Pending Results: No
[2025-04-20 10:10] VITALS: BP 111/55
== END 2025-04-20 11:17 | DRG 494 ==
LOC: 2 SOUTH 18:06
PROVIDERS: Internal Medicine; Physician Assistant; Student in an Organized Health Care Education/Training Program; ADMITTING PHYSICIAN Internal Medicine; ATTENDING PHYSICIAN Internal Medicine; CONSULT PHYSICIAN Orthopaedic Surgery; EMERGENCY PHYSICIAN Student in an Organized Health Care Education/Training Program; FAMILY PHYSICIAN Internal Medicine
PROC: 0QSH06Z Reposition Left Tibia with Intramedullary Internal Fixation Device, Open Approach (ICD-10-PCS; 2025-04-18)
DX: M80.062A Age-related osteoporosis with current pathological fracture, left lower leg, initial encounter for fracture (principal); G20.A1 Parkinson's disease without dyskinesia, without mention of fluctuations; Z87.891 Personal history of nicotine dependence; Z66 Do not resuscitate; I10 Essential (primary) hypertension; F41.9 Anxiety disorder, unspecified; G62.9 Polyneuropathy, unspecified; Z60.2 Problems related to living alone
CPT/HCPCS: 29515; 73120; 73590; 73610; 73700; 76000; 80048; 80053; 82607; 82728; 82746; 83540; 83550; 85018; 85025; 85027; 85045; 85610; 85730; 86850; 86900; 86901; 97163; 97167; 97530; 99285